=== PATIENT | female | born 1975 | race Caucasian/White ===

== ENCOUNTER 2021-07-07 04:25 | Emergency (ER) | payer MEDICAID ==
[~2021-07-07] VITALS: Ht 154.9 cm; Wt 79.4 kg
[2021-07-07 04:30] VITALS: BP 156/85
--- NOTE | 2021-07-07 04:39 | NUR ---
patient ambulated to bathroom, given a urine cup for urine collection
--- NOTE | 2021-07-07 04:43 | NUR ---
PT TAKEN TO BED 7
--- NOTE | 2021-07-07 04:54 | NUR ---
Dr. Matthew examining patient.
[2021-07-07] MEDS ORDERED: FAMO-92 PO (05:00)
[2021-07-07] MEDS ORDERED: DOCU-299 PO (05:00)
[2021-07-07] MEDS ORDERED: BEN10 PO (05:00)
--- NOTE | 2021-07-07 05:16 | NUR ---
Patient discharged with v/s stable. Written and verbal after care instructions given and explained. Patient alert, oriented and verbalized understanding of instructions. Ambulatory with steady gait. All questions addressed prior to discharge. ID band removed. Patient advised to follow up with PMD. Rx of BENTYL, COLACE, AND PEPCID given. Patient educated on indication of medication including possible reaction and side effects. Opportunity to ask questions provided and answered.
[2021-07-07 05:19] VITALS: BP 156/85
== END 2021-07-07 05:16 | disposition home or self-care (01) ==
LOC: MED 04:25
DX: R10.10 Upper abdominal pain, unspecified (principal); E11.9 Type 2 diabetes mellitus without complications; I10 Essential (primary) hypertension; E78.5 Hyperlipidemia, unspecified; Z79.899 Other long term (current) drug therapy
CPT/HCPCS: 81002; 81025; 82948; 99283

== ENCOUNTER 2022-05-18 09:34 | Emergency (ER) | payer MEDICAID ==
[~2022-05-18] VITALS: Ht 154.9 cm; Wt 72.6 kg
[~2022-05-18 09:34] MED LIST: ASPI-1822 PO; ATOR10TA PO; GLIP10TE PO; LOSA100T1 PO; METF-1139 PO
[2022-05-18 09:53] VITALS: BP_SYST 129; BP_SYST 139; BP_DIAS 116; BP_DIAS 94
--- NOTE | 2022-05-18 10:01 | NUR ---
KAILEY. HANDED ON URINE CUP.
--- NOTE | 2022-05-18 10:10 | NUR ---
BIB SELF C/O 04/22 LLQ ABDOMINAL PAIN , NAUSEAX TODAY. DENIES DYSURIA. BLOOD SUGAR 152 AT THIS TIME. PT TOOK TYLENOL AT 9 AM TODAY. PMH: DM, HTN
[2022-05-18 12:19] LABS: APPEARANCE,URINE CLEAR (CLEAR); BILIRUBIN,URINE NEGATIVE (NEGATIVE); BLOOD, URINE 2+ (NEGATIVE); COLOR,URINE YELLOW (YELLOW); LEUKOCYTE ESTERASE ,URINE NEGATIVE (NEGATIVE); NITRITE, URINE NEGATIVE (NEGATIVE); UGLUCOSE NEGATIVE (NEGATIVE)
[2022-05-18 12:41] LABS: BASOPHILS % (AUTO) 0.3 % (0.0-2.0); EOSINOPHILS % (AUTO) 0.1 % (0.0-4.0); HEMATOCRIT 41.4 % (36-48); HEMOGLOBIN 13.4 g/dL (12.0-16.0); LYMPHOCYTES # (AUTO) 1.2 K/uL (2.5-16.5); LYMPHOCYTES % (AUTO) 8.5 % (20.5-51.1); MEAN CORPUSCULAR HEMOGLOBIN 27 pg (27-31); MEAN CORPUSCULAR HGB CONC 32 g/dL (33-37); MEAN CORPUSCULAR VOLUME 83.5 fL (80-94); MONOCYTES # (AUTO) 0.4 K/uL (0.8-1.0); MONOCYTES % (AUTO) 2.9 % (1.7-9.3); NEUTROPHILS # (AUTO) 12.8 K/uL (1.8-7.7); NEUTROPHILS % (AUTO) 88.2 % (42.2-75.2); PLATELET COUNT (AUTO) 319 K/uL (140-450); RED BLOOD CELL COUNT(AUTO) 4.96 MIL/uL (4.20-5.40); RED CELL DISTRIBUTION WIDTH 14.2 % (11.6-13.7); WHITE BLOOD COUNT (AUTO) 14.5 K/uL (4.8-10.8)
[2022-05-18 12:42] LABS: WBC,URINE 0-5 /HPF (0-5)
[2022-05-18 12:43] LABS: RBC,URINE 0-5 /HPF (0-5)
[2022-05-18 12:44] LABS: HYALINE CASTS, URINE 0-10 /LPF (None Seen)
[2022-05-18 13:39] LABS: ALBUMIN 3.9 g/dL (3.4-5.0); CARBON DIOXIDE 19.4 mmol/L (21-32); CREATININE 1.3 mg/dL (0.6-1.3); TOTAL BILIRUBIN 0.3 mg/dL (0.0-1.0)
[2022-05-18 13:58] LABS: ANION GAP 19.4 (8-16); POTASSIUM 4.8 mmol/L (3.5-5.1)
--- NOTE | 2022-05-18 14:35 | NUR ---
TO MARTA Barron
[2022-05-18] MEDS ORDERED: CIPR500P4 PO (14:48)
[2022-05-18] MEDS ORDERED: METR-435 PO (14:48)
[2022-05-18 15:28] VITALS: BP 146/98
--- NOTE | 2022-05-18 15:30 | NUR ---
Patient discharged with v/s stable. Written and verbal after care instructions ABOUT DIVERTICULITIS given and explained. Patient alert, oriented and verbalized understanding of instructions. Ambulatory with steady gait. All questions addressed prior to discharge. ID band removed. Patient advised to follow up with PMD. Rx of CIPROFLOXACIN, METRONIDAZOLE given. Patient educated on indication of medication including possible reaction and side effects. Opportunity to ask questions provided and answered.
== END 2022-05-18 15:30 | disposition home or self-care (01) ==
LOC: MED 09:34
DX: K57.92 Diverticulitis of intestine, part unspecified, without perforation or abscess without bleeding (principal); E78.5 Hyperlipidemia, unspecified; I10 Essential (primary) hypertension; E11.9 Type 2 diabetes mellitus without complications; N18.9 Chronic kidney disease, unspecified; Z79.4 Long term (current) use of insulin; Z79.899 Other long term (current) drug therapy; Z90.49 Acquired absence of other specified parts of digestive tract; Z98.890 Other specified postprocedural states
CPT/HCPCS: 36415; 80053; 81001; 81025; 83690; 85025; 99284